=== PATIENT | female | born 1945 | race Hispanic/Latino ===

== ENCOUNTER 2017-07-09 15:53 | Emergency (ER) | payer MEDICARE, OTHER ==
[~2017-07-09] VITALS: Ht 149.9 cm; Wt 58.5 kg
[~2017-07-09 15:53] MED LIST: METOPROLOL; Z.0.METOPROLOL TART5 PO; Z.0.SIMVASTATIN5 MG PO; [UNRECOGNIZED DRUG - OTHER] PO
--- NOTE | 2017-07-09 18:47 | Diagnostic Imaging Report ---
PROCEDURE:X-RAY ABDOMEN - KUB COMPARISON:DX, ABDOMEN ACUTE SERIES W/PA CXR, 06/03/2012, 12:32. Patients [facility], CT, CT ABDOMEN/PELVIS W, 05/20/2012, 14:46. INDICATIONS:CONSTIPATION FINDINGS: There is a non-obstructed bowel-gas pattern. Moderate volume of stool within the rectum. 3.5 mm calcific density projected on the mid right flank. A few calcified injection granulomata projected on the pelvis. There are no acute osseous abnormalities. Phleboliths project on the pelvis. Bilateral facet arthropathy at L4-L5 and L5-S1. Degenerative changes of the bilateral SI and hip joints. The lung bases are clear. CONCLUSION: Nonobstructive bowel gas pattern. Moderate volume of stool within the rectum. Jayce Miles M.D. Dictated by: Jayce Miles M.D. on 07/09/2017 at 18:53 Electronically approved by: Jayce Miles M.D. on 07/09/2017 at 18:53
== END 2017-07-09 20:30 | disposition left against medical advice (07) ==
LOC: ER 15:53
DX: K59.00 Constipation, unspecified (principal)
CPT/HCPCS: 74000; 99282

== ENCOUNTER → 2021-07-22 | Outpatient (CLI) | payer MEDICARE | LOC: DX 11:00 | PROVIDERS: ATTEND Otolaryngology | DX: R13.13 Dysphagia, pharyngeal phase (principal); I10 Essential (primary) hypertension; G47.33 Obstructive sleep apnea (adult) (pediatric); Z20.822 Contact with and (suspected) exposure to COVID-19 | CPT/HCPCS: 74230; 92526; 92611; U0002 ==

== ENCOUNTER → 2025-03-03 | Outpatient (REF) | payer MEDICARE | LOC: DX 10:06 | PROVIDERS: ATTEND Otolaryngology | DX: R13.10 Dysphagia, unspecified (principal) | CPT/HCPCS: 74230 ==